=== PATIENT | female | born 1960 | race Caucasian/White ===

== ENCOUNTER 2017-01-07 18:03 | Emergency (ER) | payer BC, OTHER ==
[2017-01-07 18:08] VITALS: BP 148/82; PULSE 94; TEMP 97.7; BMI 29.9
--- NOTE | 2017-01-07 18:40 | PDOC ---
History of Present Illness - General Chief Complaint: Respiratory Stated Complaint: SHORTNESS OF BREATH Time Seen by Provider: 01/07/17 18:38 History Source: Patient Exam Limitations: No Limitations - History of Present Illness Initial Comments: CHIEF COMPLAINT: 56 y/o afebrile female with no significant PMH c/o SOB and cough x 2 weeks. HISTORY OF PRESENT ILLNESS: The patient states she ignored these symptoms last july and ended up pneumonia. She states she's had a dry cough and intermittent SOB for the past 2 weeks. She denies f/c, runny nose, earache, sore throat, CP, palpitations, abd pain, n/v/d, and all other symptoms. She hasn't taken anything for her symptoms. Vital signs on arrival are within normal limits. REVIEW OF SYSTEMS: GENERAL/CONSTITUTIONAL: No fever/chills. No weakness. No weight change. HEAD, EYES, EARS, NOSE AND THROAT: No change in vision. No ear pain or discharge. No sore throat. CARDIOVASCULAR: No chest pain. +SOB RESPIRATORY: +dry cough. No wheezing or hemoptysis. GASTROINTESTINAL: No abd pain, nausea, vomiting, diarrhea. GENITOURINARY: No dysuria, frequency, or change in urination. MUSCULOSKELETAL: No joint or muscle swelling or pain. No neck or back pain. SKIN: No rash or easy bruising. NEUROLOGIC: No headache, vertigo, loss of consciousness, or loss of sensation. PHYSICAL EXAM: GENERAL: The patient is awake, alert, and fully oriented, in no acute distress. She is well appearing and ambulatory and can speak in full sentences. HEAD: Normal with no signs of trauma. No TTP of sinuses ENT: Pupils equal, round and reactive to light, extraocular movements intact, sclera anicteric, conjunctiva clear. Neck supple. No runny nose or nasal congestion. No tonsilar erythema or edema. LUNGS: Clear to auscultation bilaterally. Normal excursion. No respiratory distress or use of accessory muscles. CV: RRR, S1/S2, no MRG. Cap refill < 2 sec. ABDOMEN: Soft, non-distended, non-tender even to deep palpation, no hepatomegaly or splenomegaly, no masses. EXTREMITIES: Normal range of motion, no edema. NEUROLOGICAL: Normal speech, normal gait. CN II-XII grossly intact. PSYCH: Normal mood, normal affect. SKIN: Warm, dry, normal turgor, no rashes or lesions noted. Past History - Past Medical History Allergies/Adverse Reactions: Allergies Allergy/AdvReac Type Severity Reaction Status Date / Time No Known Allergies Allergy Verified 01/07/17 18:06 Home Medications: Ambulatory Orders Guaifenesin AC [Robitussin AC -] 5 ml PO TID #50 ml MDD 20 01/07/17 Prednisone [Deltasone -] 40 mg PO UTDICT #8 tablet 01/07/17 - Surgical History Appendectomy: Yes - Psycho/Social/Smoking Cessation Hx Anxiety: No Suicidal Ideation: No Smoking History: Never smoked Have you smoked in the past 12 months: No Information on smoking cessation initiated: No Hx Alcohol Use: No Drug/Substance Use Hx: No Substance Use Type: None *Physical Exam - Vital Signs Last Vital Signs Temp Pulse Resp BP Pulse Ox 97.7 F 94 H 18 148/82 98 01/07/17 18:06 01/07/17 18:06 01/07/17 18:06 01/07/17 18:06 01/07/17 18:06 Medical Decision Making - Medical Decision Making A/P: 56 y/o female with cough and SOB for the past 2 weeks. Plan is as follows : 1. CXR 2. PO robitussin with codeine 3. PO prednisone CXR IMPRESSION: No acute lung disease Will d/c with rx for robitussin with codeine and 4 day course of prednisone. Informed her that robitussin may cause drowsiness. instructed her to take entire course of prednisone, OTC claritin for 1 week, follow up with her doctor and return to the ER with any worsening or concerning symptoms. The patient verbalizes understanding of all instructions, has no further questions and is awaiting discharge. *DC/Admit/Observation/Transfer Diagnosis at time of Disposition: SOB (shortness of breath), Cough - Discharge Dispostion Disposition: HOME Condition at time of disposition: Good - Referrals Referrals: Cheri Abernathy MD [Primary Care Provider] - - Patient Instructions Printed Discharge Instructions: DI for Cough -- Adult, DI for Shortness of Breath Additional Instructions: Discharge Instructions: -Take prescription medications as directed; Robitussin with codeine may cause drowsiness -Take over the counter claritin daily for the next 7 days -Drink at least 64 oz of water daily -Follow up with Dr. Abernathy as soon as possible -Return to the ER with any worsening or concerning symptoms
[2017-01-07] MEDS ORDERED: ALBUTEROL SO4 2.5/IPRATROPIUM 0.5 INH SOL 3 ML VIAL.NEB. NEB ONE (18:42)
[2017-01-07] MEDS ORDERED: guaiFENesin/CODEINE 10 ML UNIT-DOSE CUPS PO ONE (18:45)
[2017-01-07] MEDS ORDERED: predniSONE 20 MG TABLET (UD) PO ONE (18:45)
[2017-01-07] MEDS ORDERED: predniSONE 20 MG TABLET (UD) ONE (18:49)
[2017-01-07] MEDS ORDERED: guaiFENesin/CODEINE 5 ML UNIT-DOSE CUPS PO ONE (18:53)
== END 2017-01-07 19:20 | disposition home or self-care (01) ==
LOC: JERFT 18:03
DX: R05 Cough (principal)
CPT/HCPCS: 71020-TC; 99281-25